=== PATIENT | female | born 1955 | race Caucasian/White ===

== ENCOUNTER 2019-05-11 08:42 | Emergency (ER) | payer BC ==
[~2019-05-11] VITALS: Ht 165.1 cm; Wt 111.1 kg
[~2019-05-11 08:42] MED LIST: FENO160T8; LISI-646; PANTOPRAZOLE 40MG TABLETS; PRAVASTATIN 40 MG
[2019-05-11 08:50] VITALS: BP 155/78
[2019-05-11] MEDS ORDERED: hydrOXYzine 25 MG TAB or CAP PO ONE (09:15)
[2019-05-11] MEDS ORDERED: methylPREDNISolone SOD SUCC 125 MG/2 ML VL IM ONE (09:15)
== END 2019-05-11 10:01 | disposition home or self-care (01) ==
LOC: ER 08:42
DX: T78.40XA Allergy, unspecified, initial encounter (principal); X58.XXXA Exposure to other specified factors, initial encounter; E11.9 Type 2 diabetes mellitus without complications; I10 Essential (primary) hypertension; E78.5 Hyperlipidemia, unspecified; Z90.710 Acquired absence of both cervix and uterus; Z88.6 Allergy status to analgesic agent
CPT/HCPCS: 96372; 99283; J2930